=== PATIENT | female | born 1955 | race Caucasian/White ===

== ENCOUNTER → 2016-09-26 | Outpatient (CLI) | payer OTHER ==
[~2016-09-26] MED LIST: ALPRAZOLAM; LIPITOR20 MG PO; MULTIPLE VITAM1 EAC1 PO; NEOMYCIN/BACIT3.5 G1 OP; NEOMYCIN/BACIT3.5 G1 TOP; ZOLOFT25 MG PO
== END ==
LOC: CAT 16:28
DX: Z13.6 Encounter for screening for cardiovascular disorders (principal)